=== PATIENT | male | born 1955 | race Caucasian/White ===

== ENCOUNTER 2019-07-27 05:14 | Observation (INO) | payer MEDICARE ==
[2019-07-25 14:55] LABS: BASOPHILS # (AUTO) 0.1 (0.0-0.1); BASOPHILS % 0.8 % (0.0-1.0); EOSINOPHILS # (AUTO) 0.4 (0.0-0.4); EOSINOPHILS % 5.3 % (0.0-6.0); HEMATOCRIT 34.1 % (38.2-49.6); HEMOGLOBIN 10.9 g/dL (14.0-18.0); LYMPHOCYTES # (AUTO) 1.5 (1.0-3.2); LYMPHOCYTES % 20.1 % (18.0-39.1); MEAN CORPUSCULAR HEMOGLOBIN 29.4 pg (28-32); MEAN CORPUSCULAR VOLUME 91.9 fL (81-99); MONOCYTES # (AUTO) 0.9 (0.2-0.8); MONOCYTES % 11.3 % (4.4-11.3); NEUTROPHILS # (AUTO) 4.7 (2.1-6.9); PLATELET COUNT 245 x10e3/uL (140-360); RED BLOOD COUNT 3.71 x10e6/uL (4.3-5.7); RED CELL DISTRIBUTION WIDTH 13.6 % (11.7-14.4)
[2019-07-25 15:05] LABS: INR 0.84
[2019-07-25 15:06] LABS: PARTIAL THROMBOPLASTIN TIME 31.8 seconds (23.8-35.5)
[2019-07-25 15:13] LABS: ANION GAP 15.8 mmol/L (8-16); CALCIUM 9.9 mg/dL (8.4-10.2); CREATININE, SERUM 1.56 mg/dL (0.72-1.25); POTASSIUM 4.8 mmol/L (3.5-5.1)
--- NOTE | 2019-07-25 15:24 | Diagnostic Imaging Report ---
EXAMINATION: CHEST 2 VIEWS INDICATION: Pre-operative COMPARISON: None FINDINGS: LINES/TUBES:None LUNGS:The lungs are well-inflated. No focal consolidation or pulmonary edema. PLEURA:No pleural effusion or pneumothorax. MEDIASTINUM:The cardiomediastinal silhouette appears normal in size and shape. Atherosclerotic calcifications of the thoracic aorta. BONES/SOFT TISSUES:No acute osseous injury. ABDOMEN:No free air under the diaphragm. IMPRESSION: No focal pneumonia or pulmonary edema. Signed by: Mohini Cohen MD on 07/25/2019 3:20 PM
[~2019-07-27] VITALS: Ht 172.7 cm; Wt 85.3 kg
[~2019-07-27 05:14] MED LIST: GABAPENTIN300 MG PO; GLIPIZIDE5 MG PO; JANUVIA100 MG PO; LISINOPRIL5 MG PO; METFORMIN HCL500 MG PO; SIMVASTATIN20 MG PO; TOPROL XL50 MG PO; ZETIA10 MG PO
--- OUTSIDE RECORDS SUMMARY | 2019-07-27 05:17 | XMS REPORT ---
Author Author [facility] Address Unknown Phone Unavailable Care Team Providers Care Electronics Installer Name Role Phone HERIBERTO CROUCH Unavailable Unavailable Payers Payer Name Policy Type Policy Number Effective Date Expiration Date Problems This patient has no known problems. Allergies, Adverse Reactions, Alerts This patient has no known allergies or adverse reactions. Medications This patient has no known medications. Results Test Description Test Time Test Comments Text Results Atomic Results Result Comments CHEST 2 VIEWS 2019-07-25 15:19:00 [place] [address] Patient Name: SUSAN MORRIS MR #: [id number] : 1955 Age/Sex: 64/M Req #: [id number] [facility] Physician: Ordered by: HERIBERTO CROUCH MD Report #: [id number] Location: OR Room/Bed: Procedure: [id number] DX/CHEST 2 VIEWS Exam Date: 07/25/19 Exam Time: 1443 REPORT STATUS: Signed EXAMINATION: CHEST 2 VIEWS INDICATION: Pre-operative COMPARISON: None FINDINGS: LINES/TUBES:None LUNGS:The lungs are well-inflated. No focal consolidation or pulmonary edema. PLEURA:No pleural effusion or pneumothorax. MEDIASTINUM:The cardiomediastinal silhouette appears normal in size and shape. Atherosclerotic calcifications of the thoracic aorta. BONES/SOFT TISSUES:No acute osseous injury. ABDOMEN:No free air under the diaphragm. IMPRESSION: No focal pneumonia or pulmonary edema. Signed by: Cady Garcia MD on 07/25/2019 3:20 PM Dictated By: CDAY GARCIA MD 1520 Transcribed By: PROSPER on 07/25/19 1520 COPY TO: HERIBERTO CROUCH MD - MRI C-SPINE W/O CONT 2019-06-09 16:31:00 FAX: River Ibanez [phone] [place]: St: [facility] FAX: Heriberto Tee MD [phone] Name: SUSAN MORRIS [facility] : 1955 Age/S: 64/M [address] [facility] Unit #: [id number] Loc: [place] [address] Phys: Heriberto Crouch MD Acct: [id number] Dis Date: Status: REG CLI PHONE #: [phone] Exam Date: 06/09/2019 1603 FAX #: [phone] Reason: CERVICAL DISC DISORDER EXAMS: CPT CODE: [id number] MRI C-SPINE W/O CONT [id number] REASON FOR EXAM: CERVICAL DISC DISORDER Exam Order Date: 06/09/2019 3:24 PM Attending MMarichuy: Heriberto Crouch MD Comparison: 05/10/2018 Procedure: - MRI C-SPINE W/O CONT FINDINGS: Sagittal and axial images of the cervical spine were obtained in in T1, T2, and proton density with fat saturation. No IV gadolinium was given. The sagittal images show within normal alignment of the cervical spine. No evidence of diskitis or osteomyelitis. The axial images show no evidence of cord compression. The cord is unremarkable without evidence of intramedullary mass. IMPRESSION: C3-4: Mild right paracentral disc bulge with minimal narrowing of the central canal and the right neural foramen C4- 5: Minimal broad-based disc bulge. Mild central canal stenosis mostly secondary to central osseous stenosis. No evidence of neural foramen stenosis C5-6: Moderate broad-based disc bulge with mild narrowing of the right neural foramen and minimal narrowing of the left neural foramen C6-7: Minimal broad-based disc bulge. No evidence of central canal stenosis or narrowing of the neuroforamen at 1631 Reported and signed by: Yann Sal M.D. CC: River Valente MD; Heriberto Crouch MD Technologist: ROQUE HINOJOSA,RT - MRI Trnscrd Date/Time/By: 06/09/2019 (9080) : By: [email or web address] Orig Print D/T: S: 06/09/2019 (0407) PAGE 1 Signed Report
[2019-07-27] MEDS ORDERED: CEFAZOLIN SOD 1 GM/NS 50ML 100 ML IV ONE (06:25)
[2019-07-27] MEDS ORDERED: INSULIN REGULAR, HUMAN 100 UNIT/1 ML 3ML VIAL ONE (07:02)
[2019-07-27] MEDS ORDERED: LIDOCAINE HCL (LTA) 4 ML SOLN ONE (07:12)
[2019-07-27] MEDS ORDERED: ACETAMINOPHEN 1000 MG/100 ML 100 ML IV ONE (07:12)
[2019-07-27] MEDS ORDERED: IBUPROFEN 800MG/ 250ML 250 ML IV ONE (07:13)
[2019-07-27] MEDS ORDERED: THROMBIN FOR SOLN 5,000 UNIT VIAL ONE (07:20)
[2019-07-27] MEDS ORDERED: BACITRACIN 50,000 UNIT VIAL ONE (07:20)
[2019-07-27] MEDS ORDERED: BUPIVACAINE 0.5%/EPI 30 ML SDV INJ ONE (07:20)
[2019-07-27] MEDS ORDERED: BUPIVACAINE HCL 0.5% INJ 30 ML VIAL INJ ONE (08:20)
[2019-07-27] MEDS: SITAGLIPTIN 100 MG TAB PO SCH (09:00)
[2019-07-27] MEDS ORDERED: HYDROMORPHONE 2MG/ML 2 MG/ML ML IV PRN (09:00)
[2019-07-27] MEDS: METOPROLOL SUCCINATE 50 MG TAB XL PO SCH (09:00)
[2019-07-27] MEDS ORDERED: PROMETHAZINE HCL (IM) 25 MG/ML VIAL IM PRN (09:00)
[2019-07-27] MEDS ORDERED: MORPHINE SULFATE INJ 4 MG/ML INJ 1ML IM PRN (09:00)
[2019-07-27] MEDS ORDERED: ZOLPIDEM TARTRATE 5 MG TAB PO PRN (09:00)
[2019-07-27] MEDS ORDERED: ACETAMINOPHEN 325 MG TAB PO PRN (09:00)
[2019-07-27] MEDS ORDERED: MAGNESIUM/ALUMINUM/SIMETHICONE 30 ML UDC PO PRN (09:00)
[2019-07-27] MEDS: METFORMIN HCL 500 MG TAB PO SCH ×2 (09:00→15:00)
[2019-07-27] MEDS ORDERED: ONDANSETRON HCL INJ 2MG/ML 2ML 2 MG/ML VIAL IV PRN (09:00)
[2019-07-27] MEDS ORDERED: GLIPIZIDE 5 MG TAB PO SCH (09:00)
[2019-07-27] MEDS ORDERED: OXYCODONE/ACETAMINOPHEN 5-325 1 EACH TABLET PO PRN (09:00)
[2019-07-27] MEDS ORDERED: CARISOPRODOL 350 MG TAB PO PRN (09:00)
[2019-07-27] MEDS: EZETIMIBE 10 MG TAB PO SCH (09:00)
[2019-07-27] MEDS ORDERED: MORPHINE SULFATE INJ 10 MG/ML ONE (09:37)
[2019-07-27] MEDS: LISINOPRIL 2.5 MG TAB PO SCH (10:00)
--- NOTE | 2019-07-27 12:30 | NUR ---
ARRIVED VIA STRETCHER, TRANSFERRED WITH ASSISTANCE, AA&OX3, RA. SOFT COLLAR IN PLACE, UPON TRANSFERRING TO BED, PT BEGAN DRY HEAVING AND SMALL AMOUNT OF EMESIS NOTED, ANTERIOR NECK INCISION BLEEDING AT THIS TIME, PRESSURE APPLIED, PACU CHARGE CAME TO ASSESS AND CHANGE DRESSING, PT ABLE TO SWALLOW WITHOUT DIFFICULTY, CALL LIGHT WITHIN REACH
[2019-07-27 13:04] VITALS: BP 165/78
[2019-07-27 13:14] VITALS: BP 165/78
[2019-07-27 13:26] VITALS: BP 165/78
[2019-07-27] MEDS: LACTATED RINGER'S 1,000 ML IV SCH ×2 (13:32→17:19)
--- NOTE | 2019-07-27 13:45 | NUR ---
PT MEDICATED PER MD ORDER FOR NAUSEA
--- NOTE | 2019-07-27 14:31 | Operative Report ---
DATE OF PROCEDURE: 07/27/2019 SURGEON: Eliot Crouch MD PREOPERATIVE DIAGNOSES: 1. C5-C6 spondylosis with radiculopathy, M50.122. 2. Right carpal tunnel syndrome. POSTOPERATIVE DIAGNOSES: 1. C5-C6 spondylosis with radiculopathy, M50.122. 2. Right carpal tunnel syndrome. PROCEDURES PERFORMED: 1. C5-C6 anterior cervical diskectomy and microsurgical osteophyte resection and allograft fusion, 94990. 2. Preparation of MTF corticocancellous allograft, 95317. 3. C5-C6 anterior cervical plating with Synthes DPM plate, 88719. 4. Right carpal tunnel release. ANESTHESIA: General. INDICATIONS: The patient is a 64-year-old man, who presents with multilevel cervical spondylosis and spinal foraminal stenosis worst at C5-C6 with cervical radiculopathy. He also has bilateral carpal tunnel syndrome, worse on the right. He was taken to the operating room for C5-C6 anterior cervical decompression and fusion and simultaneous right carpal tunnel release. PROCEDURE IN DETAIL: After induction of general anesthesia, the patient was placed on the operating room table in supine position. The right side of neck was prepped and draped in sterile fashion. The fluoroscopic C-arm was positioned in cross-table lateral orientation. A small transverse incision was created on the right side of neck, superimposed on the C5-C6 disk space as determined by fluoroscopy. The platysma was divided in line with the incision. A subplatysmal dissection was carried out and avascular plane of dissection was developed medial to the sternocleidomastoid muscle and was followed medial to the carotid sheath to the anterior border of the cervical spine. The deep cervical fascia was opened. The esophagus was retracted to the left. The attachments of longus colli muscles to the anterolateral aspects of vertebral bodies of C5 and C6 were divided. The anterior longitudinal ligament was resected. [place] posts were inserted into C5 and C6, and the [place] distractor was used to distract the disk space. The anterior annulus of the disk was incised with a #11 blade and the contents of the disks were thoroughly evacuated with angled curettes and pituitary rongeurs. The posterior osteophytes were meticulously drilled with a 2 mm cutting bur and a high-speed drill until they were completely removed. The posterior annulus of the disk, chronically herniated disk material, and the posterior longitudinal ligament were resected layer by layer until the dura was fully exposed and decompressed. The medial aspects of the uncinate processes were resected bilaterally to further expose any compressed origins of the corresponding nerve roots. After satisfactory decompression had been achieved, the endplates were prepared for fusion. A piece of MTF corticocancellous allograft measuring 8 mm in thickness was selected, and prepared in saline and loaded onto a Synthes ZPN plate. The construct was inserted into the C5-C6 disk space under distraction and fluoroscopic guidance. The distraction was released and distraction posts were removed. The plate was screwed to the endplates of C5 and C6 with two pairs of 14 mm screws. All 4 screws were locked and excellent construct was obtained. The wound was copiously irrigated with bacitracin solution. Meticulous hemostasis was secured. Retraction was removed. The platysma was closed with 3-0 Vicryl sutures. The skin was closed with 4-0 Monocryl sutures in subcuticular fashion. Steri-Strips and dressing were applied. The patient was awakened, extubated, and taken to Postanesthesia Care Unit in stable condition. The drapes were then removed. The right arm was abducted over a hand table. The right hand, wrist, and forearm were prepped and draped circumferentially in sterile fashion. The tourniquet was inflated over the upper arm to 250 mmHg. A small midline incision was created over the median palmar crease of the hand just distal to the distal flexor crease of the wrist. The subcutaneous fat was divided and the transverse carpal ligament was identified and incised with a #15 C blade until the underlying median nerve came into view. As the assistant general manager retracted the skin edges, the transverse carpal ligament was divided proximally and distally until the full length of ligament had been divided and the full length of the median nerve was exposed and decompressed within the carpal tunnel. The point of maximal compression of nerve appeared to be about 2 cm distal to the distal flexor crease of the wrist where the ligament was at its thickest. More distally, the recurrent motor branch of the nerve was preserved within its fat pad. The wound was irrigated with bacitracin solution and closed with 3-0 Vicryl suture and 3-0 nylon suture in a horizontal mattress fashion. The incision was infiltrated with lidocaine. The tourniquet was deflated. The patient was awakened, extubated, and taken to Postanesthesia Care Unit in stable condition. No intraoperative complications were encountered. Estimated blood loss was 20 mL. Eliot Crouch MD PP/CHING /[id number]
[2019-07-27] MEDS: CEFAZOLIN SOD 1 GM/NS 50ML 50 ML IV SCH ×2 (15:00→22:46)
--- NOTE | 2019-07-27 15:49 | NUR ---
PT MEDICATED PER MD ORDER FOR NAUSEA, ASSISTED TO STAND AND USE URINAL, STANDBY ASSIST BACK TO BED
--- NOTE | 2019-07-27 15:54 | NUR ---
SPOKE WITH CONNER, MADE AWARE OF PT BEING NAUSEATED SINCE ARRIVAL, PRN MEDS GIVEN,K ELEVATED BLOOD GLUCOSE, AND UPON ARRIVAL TO FLOOR, PT VOMITING WHICH MADE INCISION BLEED, PACU CHARGE CAME AND CHECKED PT, AND REPLACED DRESSING, NO ACTIVE BLEEDING AT THIS TIME, ORDERS NOTED
[2019-07-27] MEDS ORDERED: DEXTROSE 50% SYRINGE 50 ML IV PRN (16:00)
[2019-07-27 16:30] VITALS: BP 136/66
[2019-07-27] MEDS: INSULIN REGULAR, HUMAN 100 UNIT/1 ML 3ML VIAL SQ SCH ×2 (18:00→21:00)
--- NOTE | 2019-07-27 18:06 | NUR ---
WITH STANDBY ASSIST, PT STOOD AT SIDE OF BED, VOIDED VIA URINAL, STANDBY ASSIST BACK TO BED
[2019-07-27] MEDS: GLIPIZIDE 5 MG TAB PO SCH (18:28)
[2019-07-27] MEDS ORDERED: MIDAZOLAM HCL 2 MG/2 ML VIAL ONE (19:40)
[2019-07-27] MEDS ORDERED: FENTANYL CITRATE/PF 100MCG/2 ML INJ ONE (19:40)
[2019-07-27] MEDS ORDERED: LIDOCAINE HCL 2% JELLY 5 ML TUBE ONE (19:44)
[2019-07-27] MEDS ORDERED: PROPOFOL IV EMULSION 10 MG/ML 20 ML VIAL ONE (19:44)
[2019-07-27] MEDS ORDERED: NEOSTIGMINE 5 MG/5ML SYR ONE (19:44)
[2019-07-27] MEDS ORDERED: LIDOCAINE HCL 2% LOCAL INJ 5 ML SDV VIAL INJ ONE (19:44)
[2019-07-27] MEDS ORDERED: DEXAMETHASONE SOD PHOS INJ 4 MG/ML VIAL ONE (19:44)
[2019-07-27] MEDS ORDERED: SEVOFLURANE INHAL SOLN 250 ML PEN BTL ONE (19:44)
[2019-07-27] MEDS ORDERED: GLYCOPYRROLATE INJ 1MG/ 5 ML SYR ONE (19:44)
[2019-07-27] MEDS ORDERED: ROCURONIUM BROMIDE 10 MG/ML 5ML VIAL ONE (19:44)
[2019-07-27] MEDS ORDERED: ONDANSETRON HCL INJ 2MG/ML 2ML 2 MG/ML VIAL ONE (19:44)
[2019-07-27 20:00] VITALS: BP 150/72
--- NOTE | 2019-07-27 20:06 | NUR ---
RECEIVED PT IN BED .CLOLAR IN PLACE NO BLEEDING .NOTED .PT IS VERY LETHARGIC .DENIES PAIN.AT THIS TIME .CALL LIGHT WITH IN REACH .CONTINUE TO MONITOR
[2019-07-27 20:52] VITALS: BP 136/66
[2019-07-27] MEDS ORDERED: SIMVASTATIN 20 MG TAB PO SCH (21:00)
[2019-07-27] MEDS ORDERED: GABAPENTIN 300 MG CAP PO SCH (21:00)
[2019-07-27] MEDS ORDERED: METFORMIN HCL 500 MG TAB PO SCH (21:00)
[2019-07-28] VITALS: BP 138/70
[2019-07-28] MEDS: LACTATED RINGER'S 1,000 ML IV SCH (01:39)
[2019-07-28 04:00] VITALS: BP 110/56
--- NOTE | 2019-07-28 05:53 | Diagnostic Imaging Report ---
Cervical Spine, 3 views HISTORY: Pain. COMPARISON: None. FINDINGS: Limited sensitivity for detection of subtle fractures and ligamentous abnormalities. On the lateral view, the cervical spine is visualized from the skull base to C6.. Straightening of the cervical lordosis. No subluxations. No acute displaced fracture involving the visualized cervical spine. Disc Spaces and Uncovertebral Joints: Disc height loss at C3-C4, C4-C5 and C6-C7. Disc osteophytes C3-C5 and C6-C7. Facets: Mild sclerotic facet changes in the mid to lower cervical spine. Intact cervical fixation hardware and disc spacer at C5-C6. Aortic arch calcifications. Thickening of the left apical pleura. IMPRESSION: No acute displaced fractures. Moderate to severe degenerative changes in the mid to lower cervical spine. Signed by: Mckinley Christine DO on 07/28/2019 5:50 AM
[2019-07-28] MEDS ORDERED: METFORMIN HCL 500 MG TAB PO SCH (06:00)
--- NOTE | 2019-07-28 06:33 | NUR ---
PT RESTING .C/O PAIN ND MEDICATED WITH ORDERED PAIN MEDICATION.CALL LIGHT WITH IN REACH .CONTINUE TO MONITOR
[2019-07-28] MEDS: CEFAZOLIN SOD 1 GM/NS 50ML 50 ML IV SCH (07:03)
--- NOTE | 2019-07-28 07:13 | NUR ---
BEDSIDE REPORT GIVEN TO THE ON COMING NURSE
[2019-07-28] MEDS: GLIPIZIDE 5 MG TAB PO SCH ×2 (08:04→08:14)
[2019-07-28] MEDS: INSULIN REGULAR, HUMAN 100 UNIT/1 ML 3ML VIAL SQ SCH (08:09)
[2019-07-28] MEDS: EZETIMIBE 10 MG TAB PO SCH (08:13)
[2019-07-28] MEDS: SITAGLIPTIN 100 MG TAB PO SCH (08:13)
[2019-07-28] MEDS: LISINOPRIL 2.5 MG TAB PO SCH (08:13)
[2019-07-28] MEDS: METOPROLOL SUCCINATE 50 MG TAB XL PO SCH (08:13)
[2019-07-28 08:18] VITALS: BP 143/66
== END 2019-07-28 09:26 | disposition home or self-care (01) ==
LOC: OR 05:14 → PACU V 09:00 → MED/SURG 12:55
PROVIDERS: ADMIT Neurological Surgery; ATTEND Neurological Surgery
DX: M50.122 Cervical disc disorder at C5-C6 level with radiculopathy (principal); G56.01 Carpal tunnel syndrome, right upper limb; M47.22 Other spondylosis with radiculopathy, cervical region; E11.9 Type 2 diabetes mellitus without complications; Z79.84 Long term (current) use of oral hypoglycemic drugs; E78.5 Hyperlipidemia, unspecified; I10 Essential (primary) hypertension; Z88.8 Allergy status to other drugs, medicaments and biological substances; Z01.810 Encounter for preprocedural cardiovascular examination; Z01.812 Encounter for preprocedural laboratory examination; Z01.811 Encounter for preprocedural respiratory examination; I25.10 Atherosclerotic heart disease of native coronary artery without angina pectoris; R05 Cough
CPT/HCPCS: 20931; 22551; 22845; 36415 ×3; 64721; 71046; 72040; 80048; 82948 ×2; 85025; 85610; 85730; 86850; 86900; 88304; 89060; 93005; G0378 ×2; J0131; J0690 ×2; J1100; J1817; J2001 ×2; J2250; J2270; J2405; J2550; J2704; J3010; J3490; J7121; 77003